=== PATIENT | male | born 1985 | race Caucasian/White ===

== ENCOUNTER 2019-02-20 08:55 | Outpatient (CLI) | payer OTHER ==
--- NOTE | 2019-02-20 10:46 | SLEEP CARE CONSULTATION ---
Information from patient questionnaire entered by Cheryl Emery. I have reviewed and concur with the information entered by Cheryl Emery. This document represents the service I personally performed and the decisions made by me, Layne Cuello MD, [facility]. History of Present Illness Reason for Visit: New patient, Previously diagnosed sleep apnea, sleep apnea on CPAP therapy Chief Complaint: reports: Other Duration of Symptoms: 6 years Usual bedtime: 10 pm Time it takes to fall asleep: 30 minutes Snores at night: Yes Observed to quit breathing while asleep: Yes Sleeps alone due to snoring: No Number of times waking at night: 1 Reasons for waking at night: reports: Bathroom Toss, Turn, or Twitch while sleeping: No Recalls having dreams: Yes Usually gets out of bed at: 6 - 8 am Feels refreshed in the morning: Yes Morning headache: No Sleepy or fatigued during the day: No Ever fallen asleep while driving: No Takes day naps: No Dreams during day naps: No Prior sleep studies: Yes Year and Where: 2013 - [facility] Additional HPI information: I had the pleasure of seeing Mr. Jc today regarding obstructive sleep apnea- hypopnea. As you know, he is a 33 year old gentleman who was diagnosed with the sleep-disordered breathing in [place] in 2014. The sleep study report is not available. According to the patient, the AHI was 23. He was prescribed a CPAP device set at 10 cmH2O. He uses every night and all night. The compliance data show usage in 62 out of the past 67 nights, averaging 6.2 hours a night. The residual AHI is 2.1 and average air leak is 4.3 L/minute. He wears ResMed Altamirano FX nasal pillows. He gets his supplies from [email or web address]. He finds the treatment very beneficial. No snore through the CPAP. - Parasomnia Symptoms Ever been unable to move upon waking from sleep: No Ever felt weak in the knees when startled or emotional: No Bothered by creepy, crawly, restless sensations in legs: No Problems with memory or concentration: No Subjective Initial [place] Sleepiness Scale score: 3 Past Medical History Past Medical History: reports: Hypertension, GERD Social History The patient's occupation is a [employer]er [employer] . Patient is and lives in [place]. Have you smoked in the past 12 months: No Alcohol use: Yes Alcohol amount and frequency: 1-2 drinks a week Caffeine use: Yes Caffeine amount and frequency: 2 cups a day Family History Family history of sleep disordered breathing: Yes Family Hx Sleep Apnea: Father: Sleep apnea - Treated (daughter), Other: Sleep apnea - Treated Allergies and Home Medications Drug allergies reviewed: Yes Home medication list reviewed: Yes Allergy and home medication list: Current Medications: lisinopril, omeprazole, Claritin, Flonase Allergies: no known drug allergies Review of Systems Weight gain over past 5 years: 15 Cardiovascular: reports: high blood pressure Respiratory: denies: shortness of breath, wheeze, sputum production, chronic cough, other Gastrointestinal: reports: heartburn Urinary: denies: incontinence, frequency, urgency, impotence, other Neurological: denies: headaches, seizure, head trauma, disorientation, speech dysfunction, gait or balance problems, fainting or unconsciousness, other Psychiatric: denies: Attention Deficit Hyperactivity, anxiety, depression, mood disorder, claustrophobia, other Ear/Nose/Throat: reports: nasal congestion, wisdom teeth removed Endocrine: denies: thyroid disease, history of goiter, sluggishness, too hot or cold, excessive thirst, increased appetite, increased urination, unexplained weakness, other Musculoskeletal: denies: joint pain, neck pain, back pain, joint swelling, muscle pain or cramping, mobility problems, other Immunologic: denies: sneezing, rash, itching, allergies to food or environment, other Physical Exam Vital signs obtained and entered by: Dr. Cuello Blood Pressure: 132/93 Cuff size: regular Heart Rate: 97 O2 Saturation: 97 Height: 5 ft 9 in Weight: 215 lb Body Mass Index: 31.7 BMI Classification: Obesity Class 1 Neck circumference: 18 Mood/affect: normal HEENT: No craniofacial malformation Nostrils: patent to airflow Turbinates: normal Septum: midline Mouth and throat: narrow oropharynx Soft palate: long Hard palate: normal Uvula: normal Uvula visualization: 25% Mallampati Class III Tongue: enlarged in size with teeth lui on lateral edges Tonsils: small Chin and jaw: normal size and position Neck: normal w/o lymphadenopathy or thyromegaly Heart: regular rate and rhythm Lungs: clear bilaterally Abdomen: soft, non-tender Extremities: no edema or clubbing Neurologic: intact, no focal deficits Impression and Plan IMPRESSION: 1. Obstructive Sleep Apnea-Hypopnea Syndrome, moderate, as previously diagnosed. The patient has had good treatment compliance. The current pressure setting appears effective and comfortable. The patient experiences improvement on the treatment. Narrow oropharynx and obesity are common predisposing factors for obstructive sleep apnea-hypopnea syndrome. Untreated obstructive sleep apnea can also cause hypertension. Pathophysiology of sleep-disordered breathing was discussed. Because the CPAP is now older than the useful life of 5 years, I will order the patient a new one and make it an autoCPAP set between 6 and 12 cmH2O. Plan: 1. Prescription made for an autoCPAP, heated humidifier, and related supplies. 2. Try ResMed N30i mask and P30i nasal pillows. 3. Try to lose weight. 4. Return for follow up after one month on the new machine. I spent 100% of this visit face to face with the patient with greater than 50% of this was spent time counseling the patient and coordination of care.
[2019-02-20 10:47] VITALS: BP 132/93
== END 2019-02-20 08:56 | disposition home or self-care (01) ==
LOC: SC 08:55
PROVIDERS: ATTEND Internal Medicine Pulmonary Disease
DX: G47.33 Obstructive sleep apnea (adult) (pediatric) (principal); E66.9 Obesity, unspecified; Z68.31 Body mass index [BMI] 31.0-31.9, adult
CPT/HCPCS: 99203; 99212

== ENCOUNTER 2019-07-11 15:32 | Outpatient (CLI) | payer OTHER ==
--- NOTE | 2019-07-11 12:04 | SLEEP CARE CONSULTATION ---
Information from patient questionnaire entered by Cheryl Emery. I have reviewed and concur with the information entered by Cheryl Emery. This document represents the service I personally performed and the decisions made by me, Layne Cuello MD, [facility]. History of Present Illness Service Date and Time: 07/11/2019 0975 Previous diagnosis: Moderate, Obstructive Sleep Apnea-Hypopnea Syndrome AHI: 23 ([place] 2015) Reason for follow up: first compliance after device update Equipment type: CPAP Equipment obtained from: [employer] HPI additional information: To minimize the risk of COVID-19 exposure, the patient has requested and consented to this video telemedicine visit. The patient also agrees to having his insurance billed. HPI: Mr. Jc was called today to follow up on the new CPAP that he recently acquired. He was diagnosed to have moderate obstructive sleep apnea-hypopnea syndrome. The patient wears a ResMed N30i mask. He reports using the device nightly and all through the night. The compliance report shows usage in 30 nights out of the past 30 nights, averaging 7.3 hours a night. The > 4 hour compliance rate for the past 30 days is 100%. He complained of no particular problem with the device such as soreness on the face, dry nose, epistaxis, nasal congestion or headache. He thinks that the pressure of 6 12 cmH2O is comfortable. On the CPAP therapy he notices improvement in his sleep quality, and that he wakes up feeling fresher in the morning and more awake/alert during the day. The average residual AHI is 2.3; and average air leak is 0.2 L/minute. The 90th percentile pressure is 9 cmH2O. CPAP Compliance Data - Data Reviewed with Patient Average duration of nightly device use: 7.25 Compliance rate %: 100 Current pressure setting (cmH2O): 6-12 Humidity settin Average residual AHI: 2.3 Subjective Initial [place] Sleepiness Scale score: 3 Allergies and Home Medications Drug allergies reviewed: Yes Home medication list reviewed: Yes Review of Systems Review of systems same as previous: Yes Physical Exam Height: 5 ft 9 in Impression and Plan IMPRESSION: 1. Obstructive Sleep Apnea-Hypopnea Syndrome, moderate, with the patient doing well on nasal CPAP therapy. He has excellent compliance and significant clinical improvement. The current pressure appears effective and comfortable. His mask fits well. Overall, he is very satisfied with treatment and plans to continue with it long-term. No adjustment is necessary today. PLAN: 1. Continue with autoCPAP set at 6 - 12 cmH2O. 2. Try to lose some weight 3. Return in one year for follow up or earlier if there is any problem with the treatment. Visit Type: Telehealth Video Video Type: [employer] Patient Location: Home Location of Provider: Home Patient agrees and consents to this telehealth visit type: Yes Patient agrees to have their insurance billed: Yes Time Spent with Patient (minutes): 15 Provider Statement: I spent 100% of the Telehealth Video Call with the patient with greater than 50% spent counseling the patient and coordination of care.
== END 2019-07-11 15:33 | disposition home or self-care (01) ==
LOC: SC 15:32
PROVIDERS: ATTEND Internal Medicine Pulmonary Disease
DX: G47.33 Obstructive sleep apnea (adult) (pediatric) (principal)

== ENCOUNTER 2020-05-21 06:24 | Day surgery (SDC) | payer OTHER ==
[~2020-05-21 06:24] MED LIST: cefTRIAXone 2 GM VIAL ONE
[2020-05-21] MEDS ORDERED: LACTATED RINGERS 1,000 ML IV ONE ×2 (06:47→10:07)
[2020-05-21] MEDS ORDERED: PROPOFOL 200 MG/20 ML VIAL IVP ONE (07:13)
[2020-05-21] MEDS ORDERED: ROCURONIUM 50 MG/5 ML VIAL ONE (07:13)
[2020-05-21] MEDS ORDERED: LIDOCAINE-MPF 2% 5 ML VIAL ONE (07:13)
[2020-05-21] MEDS ORDERED: DEXMEDETOMIDINE 200 MCG/2 ML VIAL ONE (07:14)
[2020-05-21] MEDS ORDERED: BUPIVACAINE 0.5% PF 10 ML VIAL ONE (07:14)
[2020-05-21] MEDS ORDERED: EPINEPHrine 1 MG/ML AMP ONE (07:14)
[2020-05-21] MEDS ORDERED: MIDAZOLAM 2 MG/2 ML VIAL ONE (07:18)
[2020-05-21] MEDS ORDERED: ATROPINE ABBOJECT 1 MG/10 ML SYRINGE IVP PRN (07:22)
[2020-05-21] MEDS ORDERED: ONDANSETRON 4 MG/2 ML VIAL IVP PRN ×2 (07:22→09:47)
[2020-05-21] MEDS ORDERED: METOCLOPRAMIDE 10 MG/2 ML VIAL IVP PRN (07:22)
[2020-05-21] MEDS ORDERED: HYDROmorphone 0.5 MG/0.5 ML SYRINGE IVP PRN (07:22)
[2020-05-21] MEDS ORDERED: NALOXONE 0.4 MG/ML VIAL IVP PRN (07:22)
[2020-05-21] MEDS ORDERED: fentaNYL 100 MCG/2 ML VIAL IVP PRN (07:22)
[2020-05-21] MEDS ORDERED: ePHEDrine 50 MG/ML VIAL IVP PRN (07:22)
[2020-05-21] MEDS ORDERED: MORPHINE 2 MG/ML CARPUJECT IVP PRN (07:22)
[2020-05-21] MEDS ORDERED: EPINEPHrine 1 MG/ML AMP IR ONE (08:00)
[2020-05-21] MEDS ORDERED: LACTATED RINGERS 1,000 ML IV SCH (08:00)
[2020-05-21] MEDS ORDERED: DEXAMETHASONE 4 MG/ML VIAL ONE (08:03)
[2020-05-21] MEDS ORDERED: ONDANSETRON 4 MG/2 ML VIAL ONE (08:03)
[2020-05-21] MEDS ORDERED: fentaNYL 100 MCG/2 ML VIAL ONE (08:47)
[2020-05-21] MEDS ORDERED: oxyCODONE 5 MG TABLET PO PRN (09:47)
--- NOTE | 2020-05-21 09:57 | OPERATIVE REPORT ---
Operative Report - Other Other Information/Narrative: Date of Surgery: 21 May 2020 Pre-Op Diagnosis: Right shoulder labral tear. Right perilabral cyst Procedure: Right shoulder arthroscopic cyst decompression, labral repair with capsulorrhaphy, and rotator cuff debridement Postop Diagnosis: Right shoulder labral tear. Right perilabral cyst. Partial- thickness rotator cuff tear Primary Surgeon: Cameron Greco Secondary Surgeon: None Complications: None EBL: 25 cc IMPLANTS: Arthrex knotless suture tack x4 POSTOPERATIVE PLAN: 0-2 weeks-Sling at all times. Pendulum exercises 5 times per day. 2-6 weeks-Passive range of motion with the following limits: FF to 120 with the palm down, ER to 30, abduction to 90 with the palm down 6-12 weeks-Active range of motion in all planes without limitation. Isometric rotator cuff strengthening is allowed 12-16 weeks-Gradually increase strengthening 16 weeks and beyond-Introduce dynamic activities EXAMINATION UNDER ANESTHESIA: ROM: Full Anterior load and shift: Stable Posterior load and shift: Able Inferior sulcus: Stable ARTHROSCOPIC FINDINGS: Rotator interval: Normal Biceps tendon & SLAP: Normal Subscapularis: Normal Rotator Cuff: Partial-thickness tearing of the supraspinatus approximately 1 mm of the insertion on the articular side. This was debrided with a shaver HAGL: Normal Labrum: There is a tear from 7:00 posteriorly until 3:30 anteriorly. A perilabral cyst was found inferiorly and decompressed. The labral tissue itself was very robust. The labrum and glenoid were prepared and repaired with 4 anchors Glenoid Cartilage: Full-thickness glad lesion at 4:00 anteriorly, unstable cartilage was excised and an anchor was placed at that location to fill the gap with labrum. Humeral Head Cartilage: Posteriorly there did appear to be some early arthritic change up near the insertion of the cuff. Otherwise normal INDICATION FOR SURGERY: 34-year-old male whom started having right shoulder pain in December 2019 after playing a lot of volleyball. His pain did not respond to physical therapy. He was found to have a perilabral cyst and an inferior labral tear on MRI with exam findings consistent with the above diagnoses. Nonoperative managment failed to resolve symptoms. The risks, benefits, and alternatives were discussed. Risks included pain, bleeding, infection, damage to nearby structures, lack of symptom relief, implant complications, stiffness, need for further surgeries, DVT, PE, stroke, and even . He signed a written consent form. PROCEDURE IN DETAIL: The patient was met in the preoperative holding on the day of the procedure. Operative extremity was signed. Consent was verified. He desired to proceed. Regional anesthesia was obtained in the preoperative area. They were brought to the operating room and surrendered to anesthesia. Once general anesthesia was obtained they were placed in the lateral decubitus position with the operative side up. An axillary roll was placed and all bony prominences were well-padded. They were then prepped and draped in the standard sterile fashion. A surgical timeout was held to confirm the patient procedure, identity, procedure, laterality, allergies, images, and antibiotics. All were in agreement we proceeded. Balanced suspension was applied and a standard diagnostic arthroscopy was performed utilizing posterior and anterior superior portal sites. The anterior superior portal site was created under direct visualization. The findings of the diagnostic arthroscopy can be found above. A mid glenoid portal was then created under direct visualization bordering the subscapularis tendon. I then used the shaver to debride all unstable portions of the supraspinatus tendon that had torn. Images were taken afterwards and there was approximately 1 mm of the footprint that had been removed. I then used the shaver to remove the glad lesion. I then used a combination of high and low angled elevators to develop the labral tear and release it from off the glenoid neck. The perilabral cyst fluid was seen to decompress. I then used to the pineapple rasp to finalize my release and abraded the bone to a bleeding bed. A sucker shaver was placed in the interval to debride any loose tissue and further abrade the glenoid neck. Any loose cartilage was debrided at that time. I then established a percutaneous 7:00 portal utilizing the Arthrex system. I then placed an anchor at the 6 o'clock position. The suture was passed using an appropriate 45 degree suture lasso. The labrum was secured using knotless technique. Appropriate tension was confirmed with a probe and the excess suture was cut. Using the same technique additional anchors were placed at 7:00 posteriorly, 5:00 anteriorly and 4:00 anteriorly. The 4:00 anchor was at the level of the glad lesion and feel that it nicely. I took care to not tighten the capsule much as the surgery was more for pain then it was for instability and the sutures really were only passed on the labral tissue. The labral tissue was very robust. Proper capsular tension was restored and a labral bumper was recreated. Balanced suspension was then released and final images were taken showing the humeral head centered in the glenoid. The portal sites were then closed with 3-0 Monocryl buried. Mastisol and Steri- Strips were applied. A sterile dressing and a sling was applied. He was awakened and transferred to the recovery room.
--- NOTE | 2020-05-21 10:26 | ANESTHESIA POST OP EVALUATION ---
Anesthesia Post Eval - Post Anesthesia Eval Vitals: Last Vital Signs Temp 36.8 C 05/21/20 10:12 Pulse 78 05/21/20 10:12 Resp 16 05/21/20 10:12 BP 114/80 05/21/20 10:12 Pulse Ox 96 05/21/20 10:12 CV Function Including HR & BP: positive: Stable Pain Control: positive: Satisfactory Nausea & Vomiting: positive: Negative Mental Status: positive: Baseline Respiratory Status: Airway Patent Hydration Status: Satisfactory Anesthesia Complications: positive: None
[2020-05-21 10:46] VITALS: BP 115/82
[2020-05-21] MEDS ORDERED: oxyCODONE 5 MG TABLET ONE (10:54)
--- NOTE | 2020-05-21 11:40 | ANESTHESIA ---
Pre-Anesthesia VS, & Labs - Diagnosis RIght shoulder instability - Procedure right shoulder labral repair Vital Signs: Temp Pulse Resp BP Pulse Ox 36.8 C 75 16 115/82 H 97 05/21/20 10:12 05/21/20 10:45 05/21/20 10:45 05/21/20 10:45 05/21/20 10:45 Height: 5 ft 9 in Weight (kg): 102.06 kg Body Mass Index: 33.2 BMI Classification: Obese - NPO >8 hours Home Medications and Allergies Home Medications: Ambulatory Orders Lisinopril [Zestril] 20 mg PO DAILY 05/17/20 Nicotine 14 mg Patch [Nicoderm] 1 each TOP Q24H 05/17/20 Omeprazole 20 mg PO DAILY 05/17/20 Active Medications Ondansetron HCl (Ondansetron 4 Mg/2 Ml Vial) 4 mg IVP Q6HR PRN PRN Reason: Nausea / Vomiting Oxycodone HCl (Oxycodone 5 Mg Tablet) 5 mg PO Q4HR PRN PRN Reason: PAIN Last Admin: 05/21/20 10:42 Dose: 5 mg Documented by: Lisinopril [Zestril] 20 mg PO DAILY 05/17/20 Nicotine 14 mg Patch [Nicoderm] 1 each TOP Q24H 05/17/20 Omeprazole 20 mg PO DAILY 05/17/20 Allergies/Adverse Reactions: Allergies Allergy/AdvReac Type Severity Reaction Status Date / Time No Known Drug Allergies Allergy Verified 05/20/20 13:08 Anes History & Medical History - Anesthetic History Anesthesia Complications: reports: No previous complications Family history of Anesthesia Complications: Denies Family history of Malignant Hyperthermia: Denies - Medical History Cardiovascular: reports: Hypertension Pulmonary: reports: Sleep apnea, CPAP use Gastrointestinal: reports: GERD Urinary: reports: None Musculoskeletal: reports: Other Endocrine/Autoimmune: reports: None Skin: reports: None Smoking Status: Current every day smoker - Surgical History General: reports: Appendectomy, Other Exam General: Alert, Oriented x3, Cooperative, No acute distress Dental: WNL Mouth Openin Fingerbreadth Neck Mobility: Normal Mallampati classification: II Thyromental Distance: 4-6 cm Respiratory: Lungs clear, Normal breath sounds, No respiratory distress, No accessory muscle use Cardiovascular: Regular rate, Normal S1, Normal S2, No murmurs Cognitive Status: Within normal limits Plan Anesthesia Type: General, Interscalene Block Regional Block: Per Surgeon's request for Post Op pain control Consent for Procedure(s) Verified and Reviewed: Yes Code Status: Attempt Resuscitation ASA classification: 2-Mild systemic disease Is this case an emergency?: No
== END 2020-05-21 06:25 | disposition home or self-care (01) ==
LOC: SDS 06:24
PROVIDERS: ATTEND Orthopaedic Surgery
DX: S43.491A Other sprain of right shoulder joint, initial encounter (principal); M25.811 Other specified joint disorders, right shoulder; X50.9XXA Other and unspecified overexertion or strenuous movements or postures, initial encounter; Y93.68 Activity, volleyball (beach) (court); Y99.8 Other external cause status; I10 Essential (primary) hypertension; K21.9 Gastro-esophageal reflux disease without esophagitis; F17.290 Nicotine dependence, other tobacco product, uncomplicated; E66.9 Obesity, unspecified; Z68.33 Body mass index [BMI] 33.0-33.9, adult; Z79.899 Other long term (current) drug therapy
CPT/HCPCS: 29806; A9270; C1713; J7120

== ENCOUNTER 2020-07-03 14:56 | Outpatient (CLI) | payer OTHER ==
--- NOTE | 2020-07-03 15:09 | SLEEP CARE CONSULTATION ---
Information from patient questionnaire entered by Cheryl Emery. I have reviewed and concur with the information entered by Cheryl Emery. This document represents the service I personally performed and the decisions made by , Sheron Stuart ARNP. History of Present Illness Service Date and Time: 07/03/2020 1456 Previous diagnosis: Moderate, Obstructive Sleep Apnea-Hypopnea Syndrome AHI: 23 (in 2014) Reason for follow up: annual (last seen 06/2019) Equipment type: CPAP Equipment obtained from: Other ([facility]; getting supplies as needed) Mask style: Nasal Mask brand: Resmed (N30i) Backup mask available: Yes (old mask) Last cushion change: 2 days ago Prior sleep studies: Yes Year and Where: 2013 - [facility] additional information: JASE FREY was diagnosed to have moderate, AHI 23, obstructive sleep apnea- hypopnea syndrome and returns via Telehealth visit today for CPAP therapy annual follow-up. CPAP Compliance Data - Data Reviewed with Patient Average duration of nightly device use: 6 hr 53 min Compliance rate %: 91 (180 days) Current pressure setting (cmH2O): 6-12 Humidity settin Average residual AHI: 2.3 Subjective Patient concerns: denies: aerophagia, mask discomfort, air blowing in eyes, mask leak noise, condensation in mask/hose, nasal congestion, dry mouth, nose, throat, epistaxis, other Observed to snore while using device: No Current pressure setting perceived as: comfortable On therapy, patient: reports: sleeping better, awakening more refreshed, being more awake and alert during the day, more rested overall. denies: drowsiness while driving Initial [place] Sleepiness Scale score: 3 (in 2019) Current [place] Sleepiness Scale score: 2 Allergies and Home Medications Home medication list reviewed: Yes (no new meds) Review of Systems Review of systems same as previous: No (shoulder surgery 6 weeks ago) Physical Exam Vital signs obtained and entered by: Telehealth visit to reduce exposure during covid pandemic Height: 5 ft 9 in Impression and Plan 1. Obstructive Sleep Apnea-Hypopnea Syndrome, moderate, with good treatment com pliance and good apnea control. On CPAP therapy, the patient has better sleep quality and is more rested overall. He has significant improvement of his apnea and he is satisfied with his treatment. He has no concerns with aerophagia, oral dryness, skin irritation or nasal congestion. I will have him follow up in one year. He voiced understanding. Patient's apnea severity and rationale for treatment to reduce apnea, improve sleep quality and reduce cardiovascular and cerebrovascular events was reviewed. I also reviewed the benefit of consistent device use of CPAP for hypertension and gastric reflux. * Continue autoCPAP pressure at 6-12 cmH2O * Notify me if snoring with mask or feeling that the pressure is too much or too little * Attempt to lose weight * Call this office if any problems using CPAP * Return for follow up in 1 year, or sooner if concerns arise Counseling Topics: Spare mask, Weight loss health impact Visit Type: Telehealth Video Video Type: [employer] Patient Location: Home Location of Provider: Office Patient agrees and consents to this telehealth visit type: Yes Patient agrees to have their insurance billed: Yes Time Spent with Patient (minutes): 11 Provider Statement: I spent 100% of the Telehealth Video Call with the patient with greater than 50% spent counseling the patient and coordination of care.
== END 2020-07-03 14:57 | disposition home or self-care (01) ==
LOC: SC 14:56
PROVIDERS: ATTEND Nurse Practitioner Family
DX: G47.33 Obstructive sleep apnea (adult) (pediatric) (principal)

== ENCOUNTER 2021-09-23 10:54 | Outpatient (CLI) | payer OTHER ==
--- NOTE | 2021-09-23 10:02 | SLEEP CARE CONSULTATION ---
Information from patient questionnaire entered by Kota Kapoor MA. I have reviewed and concur with the information entered by Kota Kapoor MA. This document represents the service I personally performed and the decisions made by , Sheron Stuart ARNP. History of Present Illness Service Date and Time: 09/23/2021 0940 Previous diagnosis: Moderate, Obstructive Sleep Apnea-Hypopnea Syndrome AHI: 23.0 (in 2014) Reason for follow up: annual (LAST SEEN 06/2020, RESMED, [place] 04/02/19, ) Equipment type: CPAP Equipment obtained from: Other ([facility]; getting supplies as ne eded) Mask style: Nasal Mask brand: Resmed ([id number]) Backup mask available: Yes (old mask) Last cushion change: 2 weeks ago Prior sleep studies: Yes Year and Where: 2013 [facility] HPI additional information: JASE FREY was diagnosed to have moderate, AHI 23.0, obstructive sleep apnea- hypopnea syndrome and returns via video telehealth visit today for CPAP therapy annual follow-up. Sleep Study - Results Prior sleep studies: Yes Year and Where: 2013 - [facility] CPAP Compliance Data - Data Reviewed with Patient Average duration of nightly device use: 7 HOURS 5 MINUTES Compliance rate %: 96 (06/25/21-09/22/21; 89/90 days used) Current pressure setting (cmH2O): 6-12 Average residual AHI: 1.9 Central apnea: .2 Obstructive apnea: 1.5 Hypopnea: .1 Average large leak: .1 Subjective Patient concerns: denies: aerophagia, mask discomfort, air blowing in eyes, mask leak noise, condensation in mask/hose, nasal congestion, dry mouth, nose, throat, epistaxis, other Observed to snore while using device: No Current pressure setting perceived as: comfortable On therapy, patient: reports: sleeping better, awakening more refreshed, being more awake and alert during the day, more rested overall. denies: drowsiness while driving Initial [place] Sleepiness Scale score: 3 (in 2019) Current [place] Sleepiness Scale score: 3 Allergies and Home Medications Home medication list reviewed: Yes (no changes) Allergy and home medication list: Allergies No Known Drug Allergies Allergy (Verified 05/20/20 13:08) Review of Systems Review of systems same as previous: No (Right shoulder repair surgery) Physical Exam Vital signs obtained and entered by: Marcel KAPOOR CMA AAMA, PRE TELEMED APPT, Height: 5 ft 9 in Weight: 220 lb (pt reported) Body Mass Index: 32.5 BMI Classification: Obese Impression and Plan 1. Obstructive Sleep Apnea-Hypopnea Syndrome, moderate, with good treatment compliance and good apnea control. On CPAP therapy, the patient has better sleep quality and is more rested overall. Patient has significant improvement of his sleep apnea and is very happy with his CPAP therapy. Patient denies problems with oral dryness, nasal congestion, epistaxis, skin irritation or aerophagia. Patient's apnea severity and rationale for treatment to reduce apnea, improve sleep quality and reduce cardiovascular and cerebrovascular events was reviewed. I also reviewed the benefit of consistent device use of CPAP for hypertension and gastric reflux. 2. Obesity, unspecified. Patient states he is about to start trying to lose weight. Currently patients BMI is 32.5. Obesity increases the risk of apnea, CPAP pressure requirements and overall health risks especially cardiovascular and diabetes. Thus patient is advised to lose weight. Weight loss can be done with reducing portion size, reducing refined foods and balancing content with vegetables, fruit and whole grain foods. In addition, patient encouraged to get regular exercise. The patient's CPAP pressure range should accommodate some weight loss. Symptoms to report for additional pressure adjustment discussed. * Continue auto CPAP pressure at 6-12 cmH2O * Update supplies as needed * Notify me if snoring with mask or feeling that the pressure is too much or too little * Attempt to lose weight * Call this office if any problems using CPAP * Return for follow up in 1 year, or sooner if concerns arise Counseling Topics: Spare mask, Weight loss health impact Visit Type: Telehealth Video ([phone]) Video Type: Doximity Patient Location: Home Location of Provider: Office Patient agrees and consents to this telehealth visit type: Yes Time Spent with Patient (minutes): 12 Provider Statement: I spent 100% of the Telehealth Video Call with the patient with greater than 50% spent counseling the patient and coordination of care.
== END 2021-09-23 10:55 | disposition home or self-care (01) ==
LOC: SC 10:54
PROVIDERS: ATTEND Nurse Practitioner Family
DX: G47.33 Obstructive sleep apnea (adult) (pediatric) (principal); E66.9 Obesity, unspecified; Z68.32 Body mass index [BMI] 32.0-32.9, adult